=== PATIENT | male | born 1955 | race Caucasian/White ===

== ENCOUNTER → 2019-12-22 | Outpatient (CLI) | payer OTHER ==
[2018-02-09 07:00] VITALS: BP 140/88
[~2019-12-22] MED LIST: CIPR500T94 PO; CITA20TA9 PO; ESZO3TAB28 PO; FLUT16SP NS; METR500T PO; OMEP40CA45 PO; SILD20TA4 PO; TRAZ150T49 PO
== END ==
LOC: SURGPAT 15:52
PROVIDERS: ATTEND Surgery
DX: Z01.812 Encounter for preprocedural laboratory examination (principal); U07.1 COVID-19
CPT/HCPCS: U0003-CS